=== PATIENT | female | born 1990 | race Caucasian/White ===

== ENCOUNTER 2024-10-09 14:51 | Emergency (ER) | payer BC, SELFPAY ==
--- OUTSIDE RECORDS SUMMARY | 2024-10-09 14:58 | XMS_ITS | Clinical Summary ---
Author Organization [facility] Address [address] [place] [address] Phone Care Team Providers Care Quantitative Analyst Name Role Phone Amos Jackson DO Primary Care Provider [phone] Allergies Active Allergy Reactions Criticality Noted Date Comments Hydralazine Other (See Comments),Headache High 06/09 Flushing Medications cetirizine (ZyrTEC) 10 mg tablet Take 10 mg by mouth 1 time daily as needed for Allergies. Active ibuprofen (MOTRIN) 600 mg tablet Take 1 Tablet (600 mg) by mouth every 6 hours. 50 Tablet 04/18/2024 11:26 AM CDT 04/18/2024 Active acetaminophen (TYLENOL) 500 mg tablet Take 500 mg by mouth every 6 hours as needed for Pain. Active Active Problems Problem Noted Date Diagnosed Date Status post primary low transverse sect ion 04/15/2024 MFM tx; Severe HTN 06/08/2023 Obesity in , antepartum 06/08/2023 Resolved Problems Problem Noted Date Diagnosed Date Resolved Date High-risk in third trimester 06/08/2023 04/28/2024 Encounters Date Type Department Care Team Description 09/27/2024 External Device Data [facility] ABSTRACTION Provider, Abstract 09/15/2024 External Device Data [facility]STRACTION Provider, Abstract 08/02/2024 External Device Data [facility]STRACTION Provider, Abstract from Last 3 Months Immunizations Immunization Administration Dates Next Due (ADACEL/BOOSTRIX)(10 YR UP) TDAP VACCINE, 0.5ML, IM 02/11/2024 (M-M-R II/PRIORIX)(12 MO UP) MEASLES, MUMPS AND RUBELLA VIRUS VACCINE, 0.5 ML IM/SUBCUT 11/01/1991 (RECOMBIVAX HB/ENGERIX-B)(0- 19 YRS) HEPATITIS B VACCINE 5 MCG/0.5 ML OR 10 MCG/0.5 ML PED OR ADOL 3 DOSE (PF), IM 12/17/2000,07/09/2000,06/04/2000 Diptheria, Tetanus Toxoids, And Whole Cell Pertussis Vaccine (DTP), for intramuscular use 03/11/1996,11/01/1991,02/08/1991,12/14 HIB, Unspecified Formulation 11/01/1991,02/08/19 91 Poliovirus Vaccine Live Oral 03/11/1996,10/31/18 92,1990 Family History Medical History Relation Name Comments Hypertension Maternal Grandmother Grandma Hypertension Mother Mom Relation Name Status Comments Maternal Grandmother Grandma Mother Mom Social History Tobacco Use Types Packs/Day Years Used Date Smoking Tobacco: Never Smokeless Tobacco: Never Tobacco Cessation:Counseling Given: Not Answered Alcohol Use Standard Drinks/Week Comments Never 0 (1 standard drink = 0.6 oz pur e alcohol) Feeling Safe Answer Date Recorded Are you in a relationship wi th someone who hurts you emotionally and/or physically? Patient unable to answer 04/22/2024 Food Insecurity Answer Date Recorded Social/Environmental Concerns No concerns Transportation Needs Answer Date Record ed Social/Environmental Concerns No concerns Housing Stability Answer Date Recorded Social/Environmental Concerns No concerns Utility Needs Answer Date Recorded Social/Environmental Concerns No concerns Comments No Sex and Gender Information Value Date Recorded Sex Assigned at Not on file Legal Sex Female 9:35 AM CDT Gender Identity Not on file Sexual Orientation Not on file Last Filed Vital Signs Vital Sign Reading Time Taken Comments Blood Pressure 122/76 05/26/2024 10:43 AM CDT Pulse 73 04/18/2024 6:59 AM CDT Temperature 36.8 C (98.3 F) 04/18/2024 6:59 AM CDT Respiratory Rate 16 04/18/2024 6:59 AM CDT Oxygen Saturation 99% 04/17/2024 8:48 PM CDT Inhaled Oxygen Concentration - - Weight 122.2 kg (269 lb 6.4 oz) 024 10:43 AM CDT Height 167.6 cm (5' 6 ) 05/26/2024 10:4 3 AM CDT Body Mass Index 43.48 05/26/2024 10:43 AM CDT Plan of Treatment Health Maintenance Due Date Last Done Comments CERVICAL CANCER SCREENING 2020 INFLUENZA VACCINE (#1) 2024 COVID-19 Vaccine (2 - season) 2024 10/11/2020 DTAP/TDAP/TD VACCINES (6 - Td or Tdap) 02/10/2034 02/11/2024, 03/11/1996, 11/01/1991, Additional history exists HEPATITIS B VACCINES Completed 12/17/2000, 07/09/2000, 06/04/2000 HPV VACCINES Aged Out No longer eligi ble based on patient's age to complete this topic Insurance [employer] Advance Directives For more information, please contact: [phone] * Full Code (Latest Code Status on File) Date Activated Date Inactivated Comments 04/15/2024 11:59 AM 04/18/2024 8:08 PM Care Teams Quantitative Analyst Relationship Specialty Start Date End Date Amos Jackson DO [address] [place] [phone] PCP - General Family Practice 01/04/21
--- OUTSIDE RECORDS SUMMARY | 2024-10-09 14:58 | XMS_ITS | Data Portability ---
Author Organization [facility] [place] , [facility] Address [address] [place] [address] Assessment No assessment recorded. Plan of Treatment Reminders Order Date Submit Date Provider Last Modified By Organization Details Last Modified Time Details Appointments None recorded. Lab genetic screen, unspecified specimen 2022 023 MAX [facility], [address], [place], [address], 3 16:49:58 culture, urine 2022 023 [facility], [address], [place], [address], 3 08:28:26 varicella-z savanna igg Ab screen, serum 2022 023 [facility], [address], [address], [place], [address], 3 08:28:24 antibody screen, serum or plasma 2022 023 [facility], [address] [place], [address], 3 08:28:25 abo group + rh type, blood 2022 023 [facility], [address] [place], [address], 3 08:28:26 CT + NG DNA, PCR, unspecified specimen 2022 023 [facility], [address] [place], [address], 3 14:58:22 CBC w/ auto diff 2022 023 [email or web address], [address] [place], [address], 3 10:21:38 hemoglobin A1c, QN, blood 2022 023 [email or web address], [address] [place], [address], 3 10:11:08 hemoglobino josé miguel profile, blood 2022 023 [facility], [address] [place], [address], 3 08:28:25 obstetric screen + HIV, serum or blood 2022 023 [facility], [address] [place], [address], 3 11:25:07 aneuploidy risk, chromosome specific circulating cell free (ccf) DNA, maternal serum 2022 023 [facility], [address] [facility], [place], [address], 3 02:10:30 test, urine 2022 023 [email or web address], [address] [place], [address], 3 16:47:27 Referral maternal & medicine referral - anatomy scan, complicated by bmi: 40 and lumbar disc disease 2022 023 [facility], [address] [facility], [address], [address], 3 12:19:07 Procedures None recorded. Surgeries None recorded. Imaging US, transvagina l 2022 023 MAX Not available 3 23:47:28 Medication Orders Unisom (doxylamine ) 25 mg tablet 2022 023 [id number], [address], [place], [address], 3 15:30:28 pyridoxine (vitamin B6) 25 mg tablet 2022 023 [id number], [address], [place], [address], 3 17:18:36 Gummies 400 mcg-35 mg-25 mg-5 mg chewable tablet 2022 023 [id number], [address], [place], [address], 3 17:18:36 Patient TargetsNo targets recorded. Patient InstructionsNo instructions recorded. Reason for Referral [facility]aternal & Medicine [facility] for malformation anatomy scan, complicated by bmi: 40 and lumbar disc disease Referring Physician: Susan Grubbs, LAW INSTRUCTOR, Encounter Date: 05/25/2023 Results Created Date Observation Date Name Description Value Unit Range Abnormal Flag Note LastModifiedBy Organization Detail LastModifiedTime 03/30/2003/30/2023 pregn matteo test, urine HCG positi ve Not Available [facility] [address] [place], [address], 03/30/2023 16:44:57 05/01/2005/02/2023 HEMOG LOBIN A1C hemoglobin A1C 5.4 % <5.7 normal The refer ence range for HbA1c is indic ated in the table below . Sugge sted Diagn osis =6.5% Consi stent with diabe renata 5.7 6.4% Consi stent with incre ased risk for diabe renata (pred iabet ic) <5.7% Consi stent with the absen ce of diabe renata Not Available [facility] [address] [place] [address], [address], 05/02/2023 10:11:08 05/01/20 23 05/02/2023 CBC (INCL UDES DIFF/ PLT) WBC 10.1 thous and/u L 4.0 - 9.8 high Not Available [facility] [address] [place] [address], [address], 05/02/2023 10:21:38 05/01/20 23 05/02/2023 CBC (INCL UDES DIFF/ PLT) RBC 4.3 jagdeep on/uL 3.9 - 4.9 normal Not Available [facility] [address] [place] [address], [address], 05/02/2023 10:21:38 05/01/20 23 05/02/2023 CBC (INCL UDES DIFF/ PLT) hemoglobin 12.7 g/dL 11.8 - 14.8 normal Not Available [facility] [place] [facility] [address] [place] [address], [address], 05/02/2023 10:21:38 05/01/20 23 05/02/2023 CBC (INCL UDES DIFF/ PLT) hematocrit 36.3 % 35.5 - 44.0 normal Not Available [facility] [address] [place] [address], [address], 05/02/2023 10:21:38 05/01/20 23 05/02/2023 CBC (INCL UDES DIFF/ PLT) MCV 85.2 fL 82.0 - 99.0 normal Not Available [facility] [address] [place] [address], [address], 05/02/2023 10:21:38 05/01/20 23 05/02/2023 CBC (INCL UDES DIFF/ PLT) MCH 29.8 pg 27.2 - 32.6 normal Not Available [facility] [address] [place] [address], [address], 05/02/2023 10:21:38 05/01/20 23 05/02/2023 CBC (INCL UDES DIFF/ PLT) MCHC 35.0 g/dL 31.5 - 35.5 normal Not Available [address], [address], 05/02/2023 10:21:38 05/01/20 23 05/02/2023 CBC (INCL UDES DIFF/ PLT) RDW-CV 12.0 % 11.5 - 14.5 normal Not Available [address], [address], 05/02/2023 10:21:38 05/01/20 23 05/02/2023 CBC (INCL UDES DIFF/ PLT) platelet 262 thous and/u L 140 - 350 normal Not Available [address], [address], 05/02/2023 10:21:38 05/01/20 23 05/02/2023 CBC (INCL UDES DIFF/ PLT) MPV 11.7 fL 9.3 - 12.4 normal Not Available [address], [address], 05/02/2023 10:21:38 05/01/20 23 05/02/2023 CBC (INCL UDES DIFF/ PLT) absolute neutrophil 7.15 thous and/u L 1.90 - 7.00 high Not Available [address], [address], 05/02/2023 10:21:38 05/01/20 23 05/02/2023 CBC (INCL UDES DIFF/ PLT) absolute lymphocyte 1.90 thous and/u L 0.70 - 4.50 normal Not Available [address], [address], 05/02/2023 10:21:38 05/01/20 23 05/02/2023 CBC (INCL UDES DIFF/ PLT) absolute monocyte 0.55 thous and/u L 0.10 - 1.30 normal Not Available [address], [address], 05/02/2023 10:21:38 05/01/20 23 05/02/2023 CBC (INCL UDES DIFF/ PLT) absolute eosinophil 0.40 thous and/u L <0.70 normal Not Available [address], [address], 05/02/2023 10:21:38 05/01/20 23 05/02/2023 CBC (INCL UDES DIFF/ PLT) absolute basophil 0.05 thous and/u L <0.20 normal Not Available [address], [address], 05/02/2023 10:21:38 05/01/20 23 05/02/2023 CBC (INCL UDES DIFF/ PLT) absolute immature granulocyte 0.01 thous and/u L <0.03 normal Not Available [address], [address], 05/02/2023 10:21:38 05/01/20 23 05/02/2023 OB PANEL - STD BLOOD WORK hep BS Ag Non-Re active non-re active normal Not Available [address], [address], 05/02/2023 11:25:07 05/01/20 23 05/02/2023 OB PANEL - STD BLOOD WORK hep C Ab Non-Re active non-re active normal Not Available [address], [address], 05/02/2023 11:25:07 05/01/20 23 05/02/2023 OB PANEL - STD BLOOD WORK HIV 1/2 Ag/Ab Non-Re active non-re active normal Not Available [address], [address], 05/02/2023 11:25:07 09/08/05/02/2023 OB PANEL - STD BLOOD WORK syphilis Ab Non-Re active non-re active normal Not Available [facility] [address] [place] [address], [address], 05/02/2023 11:25:07 05/01/20 23 05/02/2023 OB PANEL - STD BLOOD WORK rubella Ab IgG 34.00 IU/mL normal INTER PRETI VE INFOR MATIO N: Rubel la Antib brandy, IgG. < 5.0 IU/mL ..... ..... . Not consi stent with immun ity 5.0 - 9.9 IU/mL ..... . Equiv ocal: Indet ermin ate-R epeat testi ng in 10-14 days may be helpf ul. > or = 10.0 IU/mL ... Consi stent with immun ity The prese nce of Rubel la IgG antib brandy sugge st respo nse to immun izati on or prior /curr ent expos ure to the Rubel la virus . Not Available [address], [address], 05/02/2023 11:25:07 05/01/20 23 05/04/2023 CT/NG chlamydia trachomatis CT neg negati ve normal This repor t is inten ded for us in clini stephan monit oring and manag ement of patie nts. It is not inten ded for use in medic al-le gal appli catio n. Not Available [facility] [address] [place] [address], [address], 05/04/2023 14:58:22 05/01/20 23 05/04/2023 CT/NG neisseria gonorrhoeae GC neg negati ve normal This repor t is inten ded for us in clini stephan monit oring and manag ement of patie nts. It is not inten ded for use in medic al-le gal appli catio n. Not Available [facility] [address] [place], [address], 05/04/2023 14:58:22 09/0805/07/2023 VARIC ANDERSON ZOSTE R VIRUS ANTIB BRANDY (IGG) varicella zoster virus antibody (IgG) 195.10 index normal Index Inter preta tion ----- ---- ----- ----- ----- ----- -- <135. 00 Negat prosper - Antib brandy not detec joanne 135.0 0 - 164.9 9 Equiv ocal > or = 165.0 0 Posit prosper - Antib brandy detec joanne A posit prosper resul t indic ates that the patie nt has antib brandy to VZV but does not diffe renti ate betwe en an activ e or past infec tion. The clini stephan diagn osis must be inter prete d in conju nctio n with the clini stephan signs and sympt oms of the patie nt. This assay relia sabino measu res immun ity due to previ ous infec tion but may not be sensi tive enoug h to detec t antib odies induc ed by vacci natio n. Thus, a negat prosper resul t in a vacci nated indiv idual does not neces saril y indic ate susce ptibi lity to VZV infec tion. A more sensi tive test for vacci natio n-ind uced immun ity is Varic anderson Zoste r Virus Antib brandy Immun ity Scree n, ACIF. Not Available [address], [address], 05/07/2023 08:28:24 05/01/2005/07/2023 HEMOG LOBIN OPATH Y EVALU ATION red blood cell count 4.29 jagdeep on/uL 3.80-5 .10 Not Available [facility] [address], [address], 05/07/2023 08:28:24 05/01/2005/07/2023 HEMOG LOBIN OPATH Y EVALU ATION hemoglobin 12.7 g/dL 11.7-1 5.5 Not Available [facility] [address], [address], 05/07/2023 08:28:24 05/01/2005/07/2023 HEMOG LOBIN OPATH Y EVALU ATION hematocrit 39.6 % 35.0-4 5.0 Not Available [facility] [address] [place], [address], 05/07/2023 08:28:24 05/01/2005/07/2023 HEMOG LOBIN OPATH Y EVALU ATION MCV 92.3 fL 80.0-1 00.0 Not Available [facility] [address] [place], [address], 05/07/2023 08:28:24 05/01/2005/07/2023 HEMOG LOBIN OPATH Y EVALU ATION MCH 29.6 pg 27.0-3 3.0 Not Available [facility] [address] [place], [address], 05/07/2023 08:28:24 05/01/2005/07/2023 HEMOG LOBIN OPATH Y EVALU ATION RDW 12.7 % 11.0-1 5.0 Not Available [address] [place], [address], 05/07/2023 08:28:24 05/01/2005/07/2023 HEMOG LOBIN OPATH Y EVALU ATION hemoglobin A 97.2 % >96.0 Not Available [facility] [address] [place], [address], 05/07/2023 08:28:24 05/01/2005/07/2023 HEMOG LOBIN OPATH Y EVALU ATION hemoglobin F <1.0 % <2.0 Not Available [facility] [address] [place], [address], 05/07/2023 08:28:24 05/01/2005/07/2023 HEMOG LOBIN OPATH Y EVALU ATION hemoglobin A2 (quant) 2.8 % 2.2-3. 2 Not Available [facility] [address] [place], [address], 05/07/2023 08:28:24 05/01/20 23 05/07/2023 HEMOG LOBIN OPATH Y EVALU ATION interpretati on Dari l pheno type. Dari l hemog lobin distr ibuti on, no HgS, HgC or other abnor mal hemog lobin obser andie. Not Available [facility] [address] [place], [address], 05/07/2023 08:28:24 05/01/2005/07/2023 ANTIB BRANDY SCREE N, RBC W/REF L ID, TITER AND AG antibody screen, RBC w/refl id, titer and Ag NO ANTIBO DIES DETECT ED normal Refer ence range No antib odies detec joanne This assay is a scree benjamin test for the detec tion of red blood cell antib odies . The test is not to be used for pretr ansfu pepe scree benjamin or for the medic al manag ement of an alloi mmuni zed pregn matteo. Not Available [address], [address], 05/07/2023 08:28:25 05/01/20 23 05/07/2023 ABO GROUP AND RH TYPE ABO group O Not Available [address], [address], 05/07/2023 08:28:26 05/01/20 23 05/07/2023 ABO GROUP AND RH TYPE Rh type RH(D) POSITI VE For addit ional infor akshat castanon refer to http: //beth Rivera stDia gnost ics.c om/fa q/FAQ 111 (This link is being provi ded for infor dylan valle/ educa hoa l purpo ses only. ) Not Available [address], [address], 05/07/2023 08:28:26 05/01/20 23 05/07/2023 CULTU RE, URINE , ROUTI NE culture, urine, routine SEE NOTE CULTU RE, URINE , ROUTI NE Micro Numbe r: [id number] Test Statu s: Final Speci men Sourc e: Urine Speci men Quali ty: Adequ ate Resul t: No Growt h Not Available [facility] [address] [place], [address], 05/07/2023 08:28:26 05/01/20 23 05/01/2023 [UNIT Y] ANEUP LOIDY NIPT fraction 2.8% normal Not Available [facility] [address] [facility], [place], [address], 05/09/2023 02:10:30 05/01/20 23 05/01/2023 [UNIT Y] ANEUP LOIDY NIPT Rh(D) nipt normal DETEC JOANNE - If pregn ant patie nt is RhD negat prosper, this indic ates an RhD posit prosper fetus . If pregn ant patie nt is RhD posit prosper, this resul t is not clini yan relev ant and could refle ct or mater nal RhD. Not Available [facility] [address] [facility], [place], [address], 05/09/2023 02:10:30 05/01/20 23 05/01/2023 [UNIT Y] ANEUP LOIDY NIPT sex chromosome aneuploidy NOT DETECT ED normal Not Available [facility] [address] [facility], [place], [address], 05/09/2023 02:10:30 05/01/20 23 05/01/2023 [UNIT Y] ANEUP LOIDY NIPT monosomy X LOW RISK <1 in 10,000 normal Not Available [facility] [address] [facility], [place], [address], 05/09/2023 02:10:30 05/01/20 23 05/01/2023 [UNIT Y] ANEUP LOIDY NIPT trisomy 13 LOW RISK <1 in 10,000 normal Not Available [facility] [address] [facility], [place], [address], 05/09/2023 02:10:30 05/01/20 23 05/01/2023 [UNIT Y] ANEUP LOIDY NIPT trisomy 18 LOW RISK <1 in 10,000 normal Not Available [facility] [address], [place], [address], 05/09/2023 02:10:30 05/01/20 23 05/01/2023 [UNIT Y] ANEUP LOIDY NIPT trisomy 21 LOW RISK <1 in 10,000 normal Not Available [facility] [address], [place], [address], 05/09/2023 02:10:30 05/01/20 23 05/01/2023 [UNIT Y] ANEUP LOIDY NIPT sex MALE normal Not Available [facility] [address] [facility], [place], [address], 05/09/2023 02:10:30 05/01/20 23 05/01/2023 [UNIT Y] ANEUP LOIDY NIPT gestation SINGLE TON normal Not Available [facility] [address] [facility] , [place], [address], 05/09/2023 02:10:30 05/01/20 23 05/01/2023 [UNIT Y] ANEUP LOIDY NIPT for detailed report, see pdf See PDF normal Not Available [facility] [address] [facility] , [place], [address], 05/09/2023 02:10:30 05/01/20 23 05/01/2023 [UNIT Y] NIKI Beverly sickle cell disease/beta -thalassemia /hemoglobino pathies carrier screen NEGATI VE normal Not Available [facility] [address] [facility] , [place], [address], 05/16/2023 16:49:58 05/01/20 23 05/01/2023 [UNIT Y] NIKI PA N alpha-thalas semia carrier screen NEGATI VE normal Not Available [facility] [address], [place], [address], 05/16/2023 16:49:58 05/01/20 23 05/01/2023 [UNIT Y] NIKI PA N cystic fibrosis carrier screen NEGATI VE normal Not Available [facility] [address], [place], [address], 05/16/2023 16:49:58 05/01/20 23 05/01/2023 [UNIT Y] NIKI PA N spinal muscular atrophy carrier screen NEGATI VE 2 SMN1 copies , SNP not presen t normal Not Available [facility] [address], [place], [address], 05/16/2023 16:49:58 05/01/20 23 05/01/2023 [UNIT Y] NIKI PA Rush for detailed report, see pdf See PDF normal Not Available [facility] [address] [facility], [place], [address], 05/16/2023 16:49:58 04/04/20 23 03/30/2023 US, trans vagin al No observ ation record ed. [email or web address] [address], [place], [address], 04/05/2023 13:17:49 Result Notes None recorded. Problems Name Problem SNOMED Code Status Onset Date Resolution Date Notes Provider Name and Address Organization Details Recorded Time Pregnanc y 83491175 Completed 202209/20/2024 Meggan Jackson CNM [address] [facility], [place], [address], [place] [facility] 5 17:10:39 Lumbar hernia 72765447 Active Sally Conte null, [facility] 3 15:31:38 Lumbar discogen ic pain [id number] Completed Patient reports signific ant back pain SUSAN GRUBBS, DO [address] [facility], [place], [address], [facility] 3 16:06:35 Obesity in mother adelia cook [id number] Completed SUSAN GRUBBS, DO [address] [facility], [place], [address], [facility] 3 16:06:35 Problem Notes None recorded. Procedures Surgical History None recorded. Imaging Results Imaging Date Name Status LastModified by Organization Details LastModified Time 03/30/2023 US, transvaginal completed [email or web address] [address], [place], [address], 04/05/2023 13:17:49 Procedure Notes None recorded. Medical Equipment None Reported. Allergies No known drug allergies Medications Name Sig Start Date Stop Date Status Note LastModified by Organization Details LastModified Time pyridoxine (vitamin B6) 25 mg tablet Take 1 tablet every day by oral route. 2022 active Not Available Not Available Not Avai lable Unisom (doxylamine) 25 mg tablet Take 1 tablet every day by oral route at bedtime. 05/01 completed Not Available Not Available Not Available [facility] 400 mcg-35 mg-25 mg-5 mg chewable tablet Take 1 tablet every day by oral route. 2022 active Not Available Not Available Not Avai lable Vitals Date Recorded Body weight Body temperature Body mass index (BMI) Body height Provider Name and Address Organization Details Last Updated DateTime 03/30/2023 967864.7 g 98 [degF] 38.4 kg/m2 167.64 cm [facility] 03/30/2023 17:04:05 Date Recorded Body height Body mass index (BMI) Body weight Body temperature Systolic blood pressure Diastolic blood pressure Provider Name and Address Organization Details Last Updated DateTime 167.64 cm 39.5 kg/m2 371925. 473269 g 98 [degF] 128 mm[Hg] 82 mm[Hg] Sally Conte [facility] [facility] 3 15:29:20 Date Recorded Body height Body mass index (BMI) Body temperature Systolic blood pressure Diastolic blood pressure Provider Name and Address Organization Details Last Updated DateTime 05/25/2023 167.64 cm 40 kg/m2 97.3 [degF] 124 mm[Hg] 80 mm[Hg] Aubree Barr [place] [facility] 3 15:40:49 Date Recorded Body weight Provider Name an d Address Organization Details Last Updated DateTime 05/25/2023 206222.722087 g SUSAN GRUBBS , DO [address] [facility], [place], [address], [facility] [facility] 05/25/2023 16:06:35 Social History Question Answer Notes LastModified by Organizat ion Details LastModified Time Tobacco Smoking Status Never Smoker Aubree Barr null, [facility] [facility] 05/25/2023 15:36:05 What Is Your Level Of Alcohol Consumption? None [email or web address] Information not available 05/25/2023 Are You Blind Or Do You Have Difficulty Seeing? No [email or web address] Information not available 05/25/2023 Are You Currently Employed? Yes Information not available 05/25/2023 Are You Deaf Or Do You Have Serious Difficulty Hearing? No [email or web address] Information not available 05/25/2023 What Type Of Diet Are You Following? REGULAR [email or web address] Information not available 05/25/2023 What Is The Highest Grade Or Level Of School You Have Completed Or The Highest Degree You Have Received? 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 [email or web address] Information not available 05/25/2023 Are You Sexually Active? Yes Information not available 05/25/2023 Do You Use Any Illicit Or Recreational Drugs? No [email or web address] Information not available 05/25/2023 Do You Or Have You Ever Used Any Other Forms Of Tobacco Or Nicotine? No Information not available 05/25/2023 Sex: Unknown Functional Status Question Answer Note LastModified by Organization D etails LastModified Time What is your exercise level? None [email or web address] Information not available 05/25/2023 Mental Status None recorded. Family History Nothing Reported. Medical History Condition Response Other Cancer N High Blood Pressure N Colon Cancer N Cytomegalovirus N Hyperthyroidism N Breast Cancer N Herpes (HSV) N Blood Transfusion N MRSA N Lung Cancer N Hypothyroidism N Depression N Incontinence N Panic Attacks N Neurological Disorder N Deep Vein Thrombosis N Anxiety Disorder N Autoimmune disease N Arthritis N Tuberculosis/Positive PPD N Shingles N Polycystic Ovarian Syndrome N Cervical Cancer N Chlamydia N Hematuria N Stroke N Varicosities N Crohn's Disease N Seasonal allergies N Alzheimer's/Dementia N COPD/Emphysema N HPV/Genital Warts N Endometriosis N IBS (Irritable Bowel Syndrome) N History of Abnormal Pap N High Cholesterol N Liver Disease N Kidney Infection N Fibromyalgia N Ulcer N Kidney Disease N HIV N Gallbladder disease N Sickle Cell Disease/Trait N Von Willebrand disease N ADD/ADHD N Eating Disorder N Anemia N Diabetes Mellitus (non-insulin dependent ) N Ovarian Problems N Multiple Sclerosis N Gonorrhea N Frequent Urinary Tract infections N Osteopenia N Headaches/migraines N GERD (reflux) N Ovarian Cancer N Diabetes (insulin dependent) N Seizures/Epilepsy N Fibroids N Heart Attack N Asthma N Lupus N Endometrial Cancer N Rubella N Blood Clotting Disorder N Bipolar Disorder N Diabetes Mellitus (during ) N Ulcerative Colitis N Hepatitis N Heart Disease N Pulmonary Embolism N RPR N Chicken Pox N Osteoporosis N Gynecological History Statement/Question Response Flow Moderate Date of LMP 12/22/2022 Frequency of Cycle (Q days) 26 Date of Last Pap Smear Duration of Flow (days) 4 Current Control Method Age at Menarche 12 Obstetrics History GPAL:G 1 P 0 0 0 0 Past Encounters Encounter ID Performer Location Encounter Start Date Encounter Closed Date Diagnosis/Indication Diagnosis SNOMED-CT Code Diagnosis ICD10 Code Diagnosis Note [id number] AMY ARIAS [facility] [address] [place] [address] 03/30/2023 16:14:46 03/31/2023 09:52:33 test positive [id number] Z32.01 Pt presents today for a confirmati on of visit. has not been previously confirmed at another healthcare facility. Pt voiced that she is happy about this . TVUS today showed:IUP with Cardiac Activity. ALYSIA based on this US. ALYSIA: 11/05/2023 Gestationa l Age: 8w 4dFHT: 123 First trimester teaching provided.- --Foods and activities to avoid---Sa fe meds---Daniele entation to practice-- -Delivery locations- --EMELINA visit progressio n---Prenat al vitamins daily--- Toxoplasmo sis precaution s reviewed-- -S/S of SAB reviewed and when to seek care RTC 4 weeks for 1st OB, Labs, and Physical. --BMI: 38.4 Nausea and vomiting 1693 1999 R11.2 [id number] Lashawn Tom MD [facility] [address] [place] [address] 05/01/2023 15:09:10 05/02/2023 10:09:59 Depression screening 812188043 Z13.31 screening 2437 27716 Z36.89 Routine an tenatal care 605156686 Z34.03 Carrier de tection, molecular genetics 4932041 Z14.8 Gestation period, 13 weeks 12001677 Z3A.13 [id number] SUSAN GRUBBS DO [facility] [address] [place] [address] 05/25/2023 15:27:48 05/29/2023 12:12:01 Gestation period, 16 weeks 50868962 Z3A.16 Routine an tenatal care 775933306 Z34.92 IUP @ 16+ wks. No OB complaints . RTO 4 wks, anatomy sono next visit. screening for malformation 131996969 Z36.3 Health Concerns Section Related Observation LastModified by Organization Detai ls LastModified Time None Recorded Concern Status LastModified by Organization Details LastModified Time None Recorded Advance Directives Directive None Recorded Payers Encounter Date Sequence Insurance Name Policy Number Policy Burgess Covered Member ID Burgess Member ID Guarantor Name 03/30/2023 1 [place] [id number] Cheryl Price [id number] Cheryl Price 05/01/2023 1 [place] [id number] Cheryl Price [id number] Cheryl Price 05/25/2023 1 [place] [id number] Cheryl Price [id number] Cheryl Price Notes Date Note Type Note Provider Name and Address Organization Details Recorded Time 03/30/2023 text/html Pt presents for OB confirmation visit. Pt's LMP 11/17/21. Pt denies bleeding, cramping, or n/v. Pt has no other concerns. AMY ARIAS [address] [place] [address], [phone], [facility] IV 03/30/2023 17:18:36 05/01/2023 text/html Cheryl is here today for a routine OB visit. She is currently at 13.1 weeks gestation. She is taking vitamins. She has not yet felt movement. She denies the presence of vaginal bleed, leaking fluid, abdominal cramps, nausea, vomiting. Pt states that have lumbar hernia disc and every time that lay down it's painful and would like to decline pap smear if it's no necessary. Lashawn Tom MD [address] [place] [address], [phone], [facility] IV 05/11/2023 14:00:59 05/25/2023 text/html Cheryl is here today for a routine OB visit. She is currently at 16.4 weeks gestation. She has no complaints or questions. She is taking vitamins. She has not felt movement. She denies the presence of vaginal bleed, leaking fluid, abdominal cramps, nausea, vomiting. There are no identifiable risk factors for pre-term labor. SUSAN GRUBBS DO [address] [place] [address], [phone], [facility] mob[facility]vas IV 05/28/2023 15:32:35 OBGyn Episode Ob Episode Information Episode Created Date Number of Fetuses Patient Bloodtype Patient rh Status Prepregnancy Weight lbs Domestic Partner Domestic Partner Phone Father Name Ship Scraper Status 05/01/20 23 1 O Positive CLOSED Fetus Data First Name Last Name Admitted to NICU Weight (g) Sex Living Outcome Pediatric Complications Fetus ID Race Codes Race Delivery Type [id number] Problems Problem Notes Problem Name Start Date End Date Resolution Snomed Code Not e Lumbar discogenic pain [id number] Patient reports significant back pain Obesity in mother complicating childbirth [id number] Alysia Calculation Initial Alysia Date Initial Exam Date Initial Exam Provider Initial Ultrasound Date Last Menstrual Period Date Ultra Sound Weeks Gestation 11/05/2023 03/30/2023 03/30/2023 8 Eighteen To Twenty Week Alysia Update Ultra Sound Date Fundal Height At Umbil Quickening Date Ultra Sound Latest Weeks Gestation Final Alysia Confirmed By Final Alysia Confirmed Date Final Alysia Date Ultra Sound Latest Days Gestation 0 0 Pre-carolina Flowsheet Flowsheet Date 05/01/2023 Ragsdale Score Blood Edema Fundus Height Fundus Units Glucose Ketones Leukocytes Nitrite Labor Signs Protein Cervic Dilation Cervic Effacement Cervic Station none none neg Type Weight in lbs Pre/Post Dialysis Refused With clothes [id number] BP Diastolic BP Location Tested BP Systolic BP Type 82 L arm 128 sitting Fetus Heart Rate Present Fetus Movement Comments Patient reports severe back pain in her past. She states she routinely sees pain management and has injections. She is refusing pelvic exam and pap smear today due to her severe issues with pain. She has never had a pap smear and wants to know what is really gained from this. She states that even when she has intercourse with her , it takes her days to recover from the pain. I have discussed with her the importance of cervical cancer screening and pelvic exam is routine part of care. I'm also concerned that if this patient cannot undergo routine pelvic exam without excruciating, debilitating pain, she may require care at a tertiary care facility. For that reason, I am recommending transfer to [facility] for care of her . Flowsheet Date 05/25/2023 Ragsdale Score Blood Edema Fundus Height Fundus Units Glucose Ketones Leukocytes Nitrite Labor Signs Protein Cervic Dilation Cervic Effacement Cervic Station Type Weight in lbs Pre/Post Dialysis Refused With clothes [id number] BP Diastolic BP Location Tested BP Systolic BP Type 80 L arm 124 sitting Fetus Heart Rate Present A 150 Fetus Movement Comments no ob complaints. RTO in 4 w eeks following [facility] anatomy scan. Menstrual History Last Menstrual Date Menses Monthly On Bcp Conception Prior Menses Frequency Hcg Plus Date Menarche Onset Age Genetic Screening And Infection History Question Response Note Thalassemia (Moroccan, Malian, Mediterranean, Or Background): MCV < 80 false Intellectual Disability/Autism false Personal or Family History of Congenital Heart D efect false History of Hepatitis false Muscular Dystrophy false Sickle Cell Disease Or Trait () false Patient Or Partner Has History Of Genital Herpes false Hemophilia Or Other Blood Disorders false Jenifer Disease false Patient's Age Will Be 35 Years Or Older At Estim ated Date of Delivery false If Yes, Agent(s) And Strength/Dosage false Medications (including Suppl ements, Vitamins, Herbs, OTC Drugs), Illicit/Recreational Drugs, Alcohol false Other Structural Defect false Recent Travel History Outside of Country false Maternal Metabolic Disorder (eg, Type 1 Diabetes , PKU) false Chris-Sachs (eg, Episcopal, Cajun, Cuban-Thomson) f alse Other Infection History false Melba's Chorea false Cystic Fibrosis false Recurrent Loss, Or A Stillbirth false Rash Or Viral Illness Since Last Menstrual Perio d false Live With Someone With TB Or Exposed To TB false Mental Retardation/Autism false If Yes, Was Person Tested For Fragile X? false History of HIV false Any Other Genetic History false Hemoglobinopathy Or Carrier false Prior GBS-infected child false Down Syndrome false Other Inherited Genetic Or Chromosomal Disorder false Patient Or Baby's Father Had A Child With Defects Not Listed Above false Personal or Family History o f Neural Tube Defect (Meningomyelocele, Spina Bifida, Or Anencephaly) false History Of STD, Gonorrhea, Chlamydia, HPV, Syphi lis false Delivery Information Delivery Date Delivery Type Labor Anesthesia Weeks Gestation Incision Type Labor Labor Length Hrs Delivered By Post Complications Tubal Sterilization Discharge Date Comments Discharge Information Feeding Method Contraceptive Method Maternal HG B and HCT Levels
--- OUTSIDE RECORDS SUMMARY | 2024-10-09 14:58 | XMS_ITS | Continuity of Care Document ---
Author Organization [facility] Address [address] [place] [address] Phone Care Team Providers Care Tallow Pumper Name Role Phone Lexa Santiago MD Unavailable Unavailable Medications Medication Instructions Dosage Effective Dates (start - stop) Status Comments labetalol 100 mg tablet take 1 tablet by oral route 2 times every day 100 MG - Active naproxen 500 mg tablet as needed - Active Procedures Procedure Date X-ray Hip 2-3 View With Pelvis 23 X-RAY LUMBAR SPINE 2V OR 3V OFFICE/OPT VISIT [facility] Advance Directives Directive Yes / No Effective Date File Name Other Directive No N/A N/A WARNING:The information contained in this section is historical and is provided for information only and does not constitute a legal document or any assurance that the information is still accurate. Please verify the information with the nieves of the legal document before using it for clinical purposes. Encounters Encounter Description Practice Location Reason(s) For Visit Diagnoses Date Provider Providers Copied on Encounter OFFICE/OPT VISIT [facility], [address] [place], [address], [place] tel:[phone] [facility] ORTHO lumbar spine (chief complaint) Pain in right hipLow back pain, unspecifiedLumbar degenerative disc diseaseLumbar radiculitis [address] [facility]. [address] [place], [address], [place]. tel:[phone] Referring Provider: Josef Stallings, [address] [place], [address]. tel:[phone] Family History Family Member Type Diagnosis Age At Onset Family History Problem Hypertension Payers Payer name Insurance type Covered libertarian ID Jami salas(s) [facility] Ppo Claims CI [id number] Social History Type Description Quantity Date Captured Comments Alcohol Use Details Caffeine Use Details Unknown Tobacco Use Status Current non-smoker Smoking Status Never smoker Non-Smoking Tobacco Use Details : No Details Available : No Details Available Sex Female Chief Complaint And Reason For Visit From encounter dated 11/14/2022 10:00'. lumbar spine (chief complaint). Description: Onset: 5 to 6 months ago. Severity level is 2. Location of pain is lower back. Pain is radiated to the back and Right calf. The patient describes the painas an ache and numbness. Symptoms are aggravated by daily activities and sitting. Symptoms are relieved by exercise. Reason For Referral Reason For Referral No Information Plan Of Treatment Date Type Action Status Goal Td vaccine. Due on due Goal Depression scree benjamin. Due on due Goal CT. Due on due Goal TSH. Due on due Goal Hepatitis C scre ening. Due on due Goal Preventive Medic ine Visit (Under 65 y/o). Due on due Goal PAP. Due on due Goal Pap/HPV testing. Due on due Goal HPV. Due on due Goal Unhealthy drug u se screening. Due on due Goal Tdap. Due on due Goal Dilated eye exam. Due on Oct due Future Order: Radiology Order Niru mbar Spine 2 Or 3 View ([id number]), Collected on: , Sent on: Sent Future Order: Radiology Order Hi p X-ray Unilateral 2-3 View With Pelvis ([id number]), Collected on: , Sent on: Sent History Of Present Illness Encounter Date Complaint History Of Prese nt Illness lumbar spine (comments) 32 year old female is seen with several month history of right lower back and leg painShe says this started after spending a day at homecoming and walking a lotNo let numbness or weaknessNo calf tenderness or swellingHer pcp, Dr Rojo gave her naproxen and sent her to [facility] from homeNo past history of back or leg problems lumbar spine Onset: 5 to 6 mo nths ago. Severity level is 2. Location of pain is lower back. Pain is radiated to the back and Right calf. The patient describes the pain as an ache and numbness. Symptoms are aggravated by daily activities and sitting. Symptoms are relieved by exercise. Functional Status Date Functional Assessmen t No Information Instructions Date Instruction Additional Infor mation No Information Assessments Type Assessment Date assessment Pain in right hip assessment Low back pain, unspecified assessment Lumbar degenerative disc disease assessment Lumbar radiculitis impression Resume exercise rout ine at the gymASA 81mg daily for one monthContinue naproxenRTC if pain persists Mental Status Date Cognitive Assessment Orientation - [place] ed to time, place, person, situation. Patient Care Teams Name Effective Dates (start - stop) Status Members No Information
--- OUTSIDE RECORDS SUMMARY | 2024-10-09 14:58 | XMS_ITS | Clinical Summary ---
Author Organization [facility] Address [facility] [place] [address] Care Team Providers Care Power House Engineer Name Role Phone None, Provider MD Primary Care Provider Unavaila ble Allergies Active Allergy Reactions Criticality Noted Date Comments Diphenhydramine Hives 01/07/2021 Medications No known medications Active Problems Problem Noted Date Diagnosed Date Hypertensive urgency 06/08/2023 Estimated Date of Delivery Comme nts Yes 11/05/2023 Social History Tobacco Use Types Packs/Day Years Used Date Smoking Tobacco: Never Smokeless Tobacco: Never Tobacco Cessation:Counseling Given: Not Answered Alcohol Use Standard Drinks/Week Comments Not Currently 0 (1 standard drink = 0.6 oz pur e alcohol) Humiliation, Afraid, Rape, and Kick questionnair e Answer Date Recorded Within the last year, have y ou been afraid of your partner or ex-partner? No 06/08/2023 Within the last year, have y ou been humiliated or emotionally abused in other ways by your partner or ex-partner? No Within the last year, have y ou been kicked, hit, slapped, or otherwise physically hurt by your partner or ex-partner? No 06/08/2023 Within the last year, have y ou been raped or forced to have any kind of sexual activity by your partner or ex-partner? No 06/08/2023 AUDIT-C Answer Date Recorded Q1: How often do you have a drink containing alc ohol? Never 01/07/2021 Average Number of Drinks Not on file 021 Frequency of Binge Drinking Not on file 12/22 Overall Financial Resource Strain (CARDIA) Answe r Date Recorded How hard is it for you to pa y for the very basics like food, housing, medical care, and heating? Not very hard 06/08/2023 Hunger Vital Sign Answer Date Recorded Within the past 12 months, y ou worried that your food would run out before you got the money to buy more. Never true 06/08/20 23 Within the past 12 months, t he food you bought just didn't last and you didn't have money to get more. Never true 06/08/2023 PRAPARE - Transportation Answer Date Re corded In the past 12 months, has l ack of transportation kept you from medical appointments or from getting medications? No 05/24 In the past 12 months, has l ack of transportation kept you from meetings, work, or from getting things needed for daily living? No 06/08/2023 Housing Stability Vital Sign Answer Rm e Recorded In the last 12 months, was t here a time when you were not able to pay the mortgage or rent on time? No 06/08/2023 In the last 12 months, how many places have you lived? 1 06/08/2023 In the last 12 months, was t here a time when you did not have a steady place to sleep or slept in a group home (including now)? No 06/08/2023 Estimated Date of Delivery Comme nts Yes 11/05/2023 Sex and Gender Information Value Date Recorded Sex Assigned at Not on file Legal Sex Female 4:10 PM CDT Gender Identity Not on file Sexual Orientation Not on file Last Filed Vital Signs Vital Sign Reading Time Taken Comments Blood Pressure 156/89 06/08/2023 11:15 AM CDT Pulse 67 06/08/2023 11:15 AM CDT Temperature 37.3 C (99.1 F) 06/08/2023 4:15 AM CDT Respiratory Rate 16 06/08/2023 11:1 5 AM CDT Oxygen Saturation 99% 06/08/2023 11: 15 AM CDT Inhaled Oxygen Concentration - - Weight 121.9 kg (268 lb 11.9 oz) 06/08/2023 1:39 AM CDT Height 167.6 cm (5' 6 ) 06/08/2023 12:5 8 AM CDT Body Mass Index 43.38 06/08/2023 12:58 AM CDT Plan of Treatment Health Maintenance Due Date Last Done Comments Cervical Cancer Screening Pap Smear (Age 30 to 64) Every 3 Years 1990 Annual Physical 1993 Hepatitis C 2008 DTaP, Tdap and Td Vaccines (1 - Tdap) 2009 03/11/1996, 11/01/1991, 02/08/1991, Additional history exists Cervical Cancer Screening Pap with HPV Testing (Age 30 to 64) Every 5 Years 2020 Cervical Cancer Screening with HPV 2020 COVID-19 Vaccine ( - season) 2024 11/01/2020, 10/11/2020 Influenza Adult (#1) 2024 RSV Immunization or 60+ Years (1 - 1-dose 75+ series) 2065 Hepatitis B Vaccines Completed 12/17/2000, 07/09/2000, 06/04/2000 HPV Vaccines Aged Out No longer eligi ble based on patient's age to complete this topic Meningococcal B Vaccine Aged Out No l onger eligible based on patient's age to complete this topic Meningococcal Vaccine Aged Out No tyron jeison eligible based on patient's age to complete this topic Pneumococcal Vaccine: Pediatrics (0 to 5 Years) and At-Risk Patients (6 to 64 Years) Aged Out No longer eligible based on patient's age to complete this topic RSV Immunizations Under 20 Months Aged Out No longer eligible based on patient's age to complete this topic [place] [address] [place] [address] Advance Directives * Full Code (Latest Code Status on File) Date Activated Date Inactivated Comments 06/08/2023 8:04 AM 06/08/2023 1:32 PM Care Teams Power House Engineer Relationship Specialty Start Date End Date None, Provider, PCP - General 01/07/21
--- OUTSIDE RECORDS SUMMARY | 2024-10-09 14:58 | XMS_ITS | Referral Summary ---
Author Organization [facility] Address [address] [place] [id number] Care Team Providers Care Treatment Supervisor Name Role Phone Amos Jackson DO Primary Care Provider [phone] Encounters Date Type Department Care Team Description 08/22/2024 Telephone [facility] at [address] [place] [address] Niyah Grajeda MD two week post call 08/08/2024 8:17 AM CONSTRUCTION PIT WORKER - 08/08/2024 11:59 PM CONSTRUCTION PIT WORKER Hospital Encounter [facility] at [address], [address] [place] [address] Niyah Grajeda MD Lumbar radiculopathy Discharge Disposition: Discharge to home or self care from Last 3 Months Allergies Active Allergy Reactions Criticality Noted Date Comments Hydralazine Other (See comments) Low 07/01/2024 Headache, severe nausea Medications acetaminophen (TYLENOL) 325 mg tablet Take 2 tablets (650 mg total) by mouth every 6 (six) hours as needed for pain Active ibuprofen (ADVIL,MOTRIN) 200 mg tab/cap Take by mouth every 6 (six) hours as needed for pain Active Active Problems Problem Noted Date Diagnosed Date Lumbar radiculopathy 08/08/2024 Immunizations Immunization Administration Dates Next Due DTP 03/11/1996, 2,02/08/1991,1990 Hep B, Adolescent or Pediatric 12/17/2000,1999,06/04/2000 HiB 11/01/1991,02/08/1991 MMR 11/01/1991 OPV 03/11/1996,11/01/1991,1990 Pfizer SARS-CoV-2 Monovalent Vaccination (12+ Yrs) PURPLE 10/11/2020 Social History Tobacco Use Types Packs/Day Years Used Date Smoking Tobacco: Never Smokeless Tobacco: Never Tobacco Cessation:Counseling Given: No AUDIT-C Answer Date Recorded Q1: How often do you have a drink containing alcohol? Never 08/08/2024 Q2: How many drinks containi ng alcohol do you have on a typical day when you are drinking? Patient does not drink Frequency of Binge Drinking Not on file 07/24 Comments No Sex and Gender Information Value Date Recorded Sex Assigned at Not on file Legal Sex Female 5:41 PM CONSTRUCTION PIT WORKER Gender Identity Female 10/22/2020 6:39 AM CONSTRUCTION PIT WORKER Sexual Orientation Not on file Last Filed Vital Signs Vital Sign Reading Time Taken Comments Blood Pressure 132/75 08/08/2024 9:40 AM CONSTRUCTION PIT WORKER Pulse 86 08/08/2024 9:40 AM CONSTRUCTION PIT WORKER Temperature 36.1 C (96.9 F) 08/08/2024 8:21 AM CONSTRUCTION PIT WORKER Respiratory Rate 18 08/08/2024 9:40 AM CONSTRUCTION PIT WORKER Oxygen Saturation 100% 08/08/2024 9:40 AM CONSTRUCTION PIT WORKER Inhaled Oxygen Concentration - - Weight 113.4 kg (250 lb) 08/08/2024 8:21 AM CONSTRUCTION PIT WORKER Height 167.6 cm (5' 6 ) 08/08/2024 8:21 AM CONSTRUCTION PIT WORKER Body Mass Index 40.35 08/08/2024 8:21 AM CONSTRUCTION PIT WORKER Plan of Treatment Not on file Goals Goal Patient Goal Type Associated Problems Recent Progress Patient-Stated? Author CCM Chronic Pain Care Plan Chronic Care Management Yes Anahi Crenshaw RN Note: Problem: Chronic Pain Goals: 1. Minimize further functional decline 2. Maximize quality of life 3. Control pain Strategies: - Activity/exercise program recommendation - Conservative stepwise pain medicine strategy with multi-disciplinary approach - Recommend healthy lifestyle strategies and compensatory methods as needed Reduce the likelihood of falling Lifestyle No Anahi Crenshaw RN Note: Below are four things you can do to prevent falls: Begin an exercise program to improve your leg strength & balance Ask your doctor or pharmacist to review your medicines Get annual eye check-ups & update your eyeglasses Make your home safer by: Removing clutter & tripping hazards Putting railings on all stairs & adding grab bars in the bathroom Having good lighting, especially on stairs Contact your local community or [facility] for information on exercise, fall prevention programs, or options for improving home safety. Procedures Procedure Name Priority Date/Time Associated Diagnosis Comments PAIN MGMT IMAGING LUMBAR/CAUDAL EPIDURAL STEROID INJ Schedule Routine, Read Routine (OP Routine) 08/08/2024 9:37 AM CONSTRUCTION PIT WORKER Lumbar radiculopathy from Last 3 Months Results * Imaging Lumbar/Caudal Epidural Steroid INJ ([id number]) (08/08/2024 9:37 AM CONSTRUCTION PIT WORKER) Narrative RAD_PACS[facility] - 08/08/2024 9:38 AM CONSTRUCTION PIT WORKER The images from this study are not interpreted by Radiology. Please refer to the physician's procedure / OR operative note. Niyah Grajeda MD IMG PAIN MGMT PROCEDURES F inal Result RAD_[facility] from Last 3 Months Insurance [employer] Binary Thumb [facility]THEM ACCESS CHOICE BLUE ACCESS CHOICE [place] Care Teams Treatment Supervisor Relationship Specialty Start Date End Date Amos Jackson DO [address] [place] [id number] PCP - General Family Practice 09/13/20
--- OUTSIDE RECORDS SUMMARY | 2024-10-09 14:58 | XMS_ITS | Encounter Summary ---
Author Organization [facility] Address [address] [place] [address] Care Team Providers Care Cracker And Cookie Machine Operator Name Role Phone Amos Jackson DO Primary Care Provider [phone] Reason for Visit * Reason Onset Date Comments Scheduling Appointments 06/21/2024 Schedule patient for follow up Encounter Details Date Type Department Care Team (Late st Contact Info) Description 06/21/2024 Telephone [facility] at [facility] [address] [address], [address] [place] [id number] Niyah Grajeda MD [address] [facility] [address] [place], [place] [id number] Scheduling Appointments (Schedule patient for follow up ) Social History Tobacco Use Types Packs/Day Years Used Date Smoking Tobacco: Never Smokeless Tobacco: Never AUDIT-C Answer Date Recorded Q1: How often do you have a drink containing alc ohol? Monthly or less 07/03/2022 Q2: How many drinks containi ng alcohol do you have on a typical day when you are drinking? 1 or 2 07/03/2022 Q3: How often do you have si x or more drinks on one occasion? Never 07/03/2022 Comments No Sex and Gender Information Value Date Recorded Sex Assigned at Not on file Legal Sex Female 5:41 PM CREDIT PORTFOLIO ADVISOR Gender Identity Female 10/22/2020 6:39 AM CREDIT PORTFOLIO ADVISOR Sexual Orientation Not on file documented as of this encounter Plan of Treatment Not on file documented as of this encounter Goals Goal Patient Goal Type Associated Problems Recent Progress Patient-Stated? Author CCM Chronic Pain Care Plan Chronic Care Management Yes Anahi Crenshaw, RN Note: Problem: Chronic Pain Goals: 1. Minimize further functional decline 2. Maximize quality of life 3. Control pain Strategies: - Activity/exercise program recommendation - Conservative stepwise pain medicine strategy with multi-disciplinary approach - Recommend healthy lifestyle strategies and compensatory methods as needed Reduce the likelihood of falling Lifestyle No Anahi Crenshaw, RN Note: Below are four things you [...] on stairs Contact your local community or [facility] for information on exercise, fall prevention programs, or options for improving home safety. documented as of this encounter Visit Diagnoses Not on filedocumented in this encounter Care Teams Cracker And Cookie Machine Operator Relationship Specialty Start Date End Date Amos Jackson DO [address] [place] [id number] PCP - General Family Practice 09/13/20 documented as of this encounter
--- OUTSIDE RECORDS SUMMARY | 2024-10-09 14:58 | XMS_ITS | Clinical Summary ---
Author Organization [facility] Address [address] [place] [id number] Care Team Providers Care Masticator Name Role Phone Amos Jackson DO Primary Care Provider [phone] Allergies Active Allergy Reactions Criticality Noted Date [...] Noted Date Diagnosed Date Lumbar radiculopathy 08/08/2024 Encounters Date Type Department Care Team Description 08/22/2024 Telephone [facility] [place] [address], [address] [place] [phone] Niyah Grajeda MD two week post call 08/08/2024 8:17 AM SHANK STAPLER - 08/08/2024 11:59 PM [facility] Hospital Encounter [facility] at [address], [address] [place] [phone] Niyah Grajeda MD Lumbar radiculopathy Discharge Disposition: Discharge to home or self care from Last 3 Months Immunizations Immunization Administration Dates Next Due DTP 03/11/1996, 2,02/08/1991,1990 Hep B, Adolescent or Pediatric 12/17/2000,1999,06/04/2000 HiB 11/01/1991,02/08/1991 MMR 11/01/1991 OPV 03/11/1996,11/01/1991,1990 Pfizer SARS-CoV-2 Monovalent Vaccination (12+ Yrs) PURPLE 10/11/2020 Medical History Medical History Date Comments Asthma Low back pain Headache Hypertension Family History Medical History Relation Name Comments Hypertension Father Hypertension Mother Relation Name Status Comments Father Alive Mother Alive Social History Tobacco Use Types Packs/Day Years [...] on file Legal Sex Female 5:41 PM SHANK STAP[facility]ER Gender Identity Female 10/22/2020 6:39 AM SHANK STAPLER Sexual Orientation Not on file Obstetrics History Para Term AB IAB SAB Ectopic Multiple Livin g Live Births 1 Date Outcome GA Total Labor Labor/2nd/3rd Weight Sex Type Anes PTL Joy A1 A5 Name Clin Last Filed Vital Signs Vital Sign Reading Time Taken Comments Blood Pressure 132/75 08/08/2024 9:40 AM [facility]ANK [facility]ER Pulse 86 08/08/2024 9:40 AM [facility]ANK [facility] Temperature 36.1 C (96.9 F) 08/08/2024 8:21 AM [facility]ANK ST[facility]ER Respiratory Rate 18 08/08/2024 9:40 AM SHANK STAPLER Oxygen Saturation 100% 08/08/2024 9:40 AM [facility]ANK STAP[facility]ER Inhaled Oxygen Concentration - - Weight 113.4 kg (250 lb) 08/08/2024 8:21 AM [facility]ANK STAPLER Height 167.6 cm (5' 6 ) 08/08/2024 8:21 AM SHANK STAPLER Body Mass Index 40.35 08/08/2024 8:21 AM SHANK STAPLER Plan of Treatment Health Maintenance Due Date Last Done Comments Cervical Cancer Screening 1990 Depression Screening 1990 Hepatitis C Screening 1990 Varicella Vaccines (1 of 2 - 13+ 2-dose series) 2003 Regular Well Visit/Exam 18-64 2008 Covid-19 Vaccine (2 - 2023- season) 2024 10/11/2020 Influenza Vaccine (#1) 2024 DTaP/Tdap/Td Vaccine (6 - Td or Tdap) 02/10/2034 02/11/2024, 03/11/1996, 11/01/1991, Additional history exists HPV Vaccines Aged Out No longer eligi ble based on patient's age to complete this topic Pneumococcal vaccine <65 Aged Out No longer eligible based on patient's age to complete this topic Goals Goal Patient Goal Type Associated Problems [...] stairs Contact your local community or senior glen campbell for information on exercise, fall prevention programs, or options for improving home safety. Procedures Procedure Name Priority Date/Time Associated Diagnosis Comments PAIN MGMT IMAGING LUMBAR/CAUDAL EPIDURAL STEROID INJ Schedule Routine, Read Routine (OP Routine) 08/08/2024 9:37 AM SHANK STAPLER Lumbar radiculopathy from Last 3 Months Results * Imaging Lumbar/Caudal Epidural Steroid INJ (06930) (08/08/2024 9:37 AM SHANK STAPLER) Narrative [facility] - 08/08/2024 9:38 AM SHANK STAPLER The images from this study are not interpreted by Radiology. Please refer to the physician's procedure / OR operative note. Niyah Grajeda MD IMG PAIN MGMT PROCEDURES F inal Result [facility] from Last 3 Months [place] Care Teams Masticator Relationship Specialty Start Date End Date Amos Jackson DO [address] [place] [id number] PCP - General Family Practice 09/13/20
[2024-10-09 15:23] VITALS: BP 155/80; PULSE 64; RESP 18; TEMP 36.2; O2SAT 100
[2024-10-09 15:53] LABS: EDUAAPPEAR Clear; EDUABILI Negative (Negative); EDUABLOOD Trace (Negative); EDUACOLOR1 Yellow; EDUAGLUCOSE Negative (Negative); EDUAKETONE Negative (Negative); EDUALEUKO Negative (Negative); EDUANITRATE Negative (Negative); EDUAPROTEIN Negative (Negative); EDUAUROBILI 0.2
--- NOTE | 2024-10-09 16:01 | ED_ITS ---
HPI - Back Pain/Injury General Chief Complaint: Back Pain/Injury Stated Complaint: Back Pain Source: patient and family () Mode of arrival: ambulatory Limitations: no limitations History of Present Illness HPI Narrative: 34-year-old female presents to [facility] accompanied by her for complaints lower back pain for the past 3 days. Patient reports the pain does radiate around to her abdomen at times. Patient also reports mild nausea at times. Patient reports that she has tried taking [id number] Tylenol, Motrin and muscle relaxers with little relief. Patient does have herniated disc to her lower back but reports that her chronic pain is lower than this current pain and the pain feels different. Patient reports that she is urinating normally. Patient also has tried applying ice and heat over the relief. Patient denies numbness, tingling. Patient denies history of kidney stones. Patient denies family history of kidney stones. MD elicited complaint: back pain Pertinent past history: prior back pain Onset (ago): day(s) (3) Timing: constant Severity: moderate Pain scale (0-10): 8 Location: left flank and right flank Exacerbating factors: none Relieving factors: none Associated symptoms: denies other symptoms Treatments prior to arrival: heat therapy, NSAIDS, acetaminophen and other medications Related Data Home Medications ?Medication ?Instructions ?Recorded ?Confirmed ?Last Taken ?Type cyclobenzaprine 5 mg tablet 5 mg PO ONCE 10/09/24 Unknown History Allergies Allergy/AdvReac Type Severity Reaction Status Date / Time hydralazine AdvReac Intermediate Vomiting Verified 10/09/24 15:34 Review of Systems Constitutional: Constitutional: Denies chills, Denies fatigue, Denies fever(s) and Denies weakness ENT: Denies nasal congestion and Denies sore throat Cardiovascular: Cardiovascular: Denies chest pain Respiratory: Respiratory: Denies cough, Denies dyspnea and Denies wheezing Gastrointestinal: Gastrointestinal: Denies diarrhea, Denies nausea and Denies vomiting Musculoskeletal: Comments: Bilateral flank pain Integumentary/Breasts: Skin/Breast: Denies erythema and Denies rash Neurologic: Denies headache(s) Endocrine: Endocrine: Denies fatigue Allergic/Immunologic: Allergic/Immunologic: Denies wheezing PMFSH Comments At time of signature, I agree with nursing past medical, surgical, social and family history. There is no relevant family history pertinent to the presenting complaint. Exam Const: General: healthy appearing and no acute distress Nutritional Appearance: well nourished Orientation/consciousness: patient oriented x3 Limitations: no limitations HENMT: Head: normal to inspection Eyes: Conjunctivae: conjunctivae normal Neck: Neck: normal visual inspection Resp: Effort & Inspection: normal respiratory effort and not labored Ausc ultation: clear to auscultation bilaterally, no crackles, no rales, no rhonchi and no wheezes Cardio: Rate: regular rate Rhythm: regular rhythm Heart sounds: no murmurs GI: Inspection: non-distended GI Palp: Yes Soft to palpation, No Tenderness to palpation present (GI), No Guarding due to palpation present (GI) and No Rigid due to palpation : General: Yes bladder normal to palpation and Yes CVA tenderness bilateral (Right is worse than left) Back/Spine/Pelvis: Back: CVA tenderness (Right is worse than left) Skin: General skin exam: normal color Rashes: no rashes Neuro: General: patient oriented x3 Speech: normal speech Gait exam (Neuro): Normal gait present Psych: Affect: normal affect Attitude: cooperative Course Course Level of Care: Express Care Visit Vital Signs Vital signs: Vital Signs Temperature 36.2 C L 10/09/24 15:23 Pulse Rate 64 10/09/24 15:23 Respiratory Rate 18 10/09/24 15:23 Blood Pressure 155/80 H 10/09/24 15:23 Pulse Oximetry 100 10/09/24 15:23 Oxygen Delivery Room Air 10/09/24 15:23 Temperature 36.2 C L 10/09/24 15:23 Pulse Rate 64 10/09/24 15:23 Respiratory Rate 18 10/09/24 15:23 Blood Pressure 155/80 H 10/09/24 15:23 Pulse Oximetry 100 10/09/24 15:23 Oxygen Delivery Room Air 10/09/24 15:23 Transfer Transfered to: [facility] Transfer rationale: Flank pain, blood in urine, rule out kidney stone Accepting physician: Dr. Mcduffie Transfer comments: Transfer form completed and signed MDM - Back Pain/Injury MDM Narrative Medical decision making narrative: Due to possible kidney stone, patient will be transferred to [facility] emergency room for imaging and to rule out kidney stone. Called ER report was given to Neeraj DUARTE. Dr Mcduffie is accepting MD. Differential Diagnosis Differential diagnosis: Likely lumbar radiculopathy and other (Kidney stone) Lab Data Labs: Lab Results 10/09/24 Range/Units 15:51 POC Urine Color Yellow POC Urine Clarity Clear POC Urine pH 6.0 POC Ur Specif [place] 1.010 POC Urine Protein Negative (Negative) POC Ur Glucose (UA) Negative (Negative) POC Urine Ketones Negative (Negative) POC Urine Blood Trace (Negative) POC Urine Nitrite Negative (Negative) POC Urine Bilirubin Negative (Negative) POC Urine Urobilinogen 0.2 POC U Leukocyte Esteras Negative (Negative) Critical Care Time Critical Care Time Critical Care Time: No Discharge Plan Discharge Clinical Impression: Acute flank pain Patient Disposition: Acute Care Hospital Condition: Stable Additional Instructions: Go directly to [facility] emergency room for further evaluation Patient Language: Serbian Prescriptions: No Action cyclobenzaprine 5 mg tablet 5 mg PO ONCE Follow-up/Referrals: PHYSICIAN,REGIONAL DIRECTOR OF ADMISSIONS [Primary Care Provider] - Time of Disposition: 16:11
== END 2024-10-09 16:06 | disposition short-term general hospital (02) ==
PROVIDERS: Emergency Provider Nurse Practitioner Family
DX: R10.9 Unspecified abdominal pain (principal)
CPT/HCPCS: 81003; 99202; G0463